=== PATIENT | male | born 1970 | race Hispanic/Latino ===

== ENCOUNTER 2025-01-29 12:41 | Outpatient (CLI) | payer SELFPAY ==
[2025-01-29 14:02] LABS: #Basophils 0.04 10x3/uL (0.0-0.2); #Eosinophils 0.12 10x3/uL (0.0-0.7); #Monocytes 0.62 10x3/uL (0.11-0.59); #Neutrophils 5.68 10x3/uL (1.40-6.50); %Basophils 0.5 % (0.0-1.0); %Eosinophils 1.4 % (0.0-10.0); %Lymphocytes 26.2 % (21.0-51.0); %Monocytes 7.1 % (0.0-10.0); %Neutrophils 64.5 % (42.0-75.0); Hematocrit 45.7 % (42.0-52.0); Hemoglobin 15.1 g/dL (14.0-18.0); Mean Corpuscular Hemoglobin 30.0 pg (27.0-31.0); Mean Corpuscular Volume 90.9 fL (78.0-98.0); Platelet Count 244 10x3/uL (130-400); Red Blood Cell (RBC) Count 5.03 mill/uL (4.70-6.10); White Blood Cell (WBC) Count 8.79 10x3/uL (4.8-10.8)
[2025-01-29 14:17] LABS: Anion Gap 13 mmol/L (10-20); BUN (Urea Nitrogen) 17 mg/dL (8.4-25.7); Calc. Creatinine Clearance 0 mL/min (70-130); Calcium 9.2 mg/dL (7.8-10.44); Carbon Dioxide 22 mmol/L (22-29); Chloride 110 mmol/L (98-107); Glucose 97 mg/dL (70-105); Potassium 4.0 mmol/L (3.5-5.1); Sodium 141 mmol/L (136-145)
== END 2025-01-29 12:42 | disposition home or self-care (01) ==
LOC: LABBT 12:41
PROVIDERS: ATTEND Orthopaedic Surgery
DX: Z01.818 Encounter for other preprocedural examination (principal); S68.615A Complete traumatic transphalangeal amputation of left ring finger, initial encounter
CPT/HCPCS: 80048; 85025; 93005; 93010

== ENCOUNTER 2025-01-30 08:27 | Day surgery (SDC) | payer OTHER, SELFPAY ==
[2025-01-29 12:54] VITALS: BMI 30.4
[2025-01-30] MEDS ORDERED: CEFAZOLIN 2 GM VIAL ONE (11:06)
[2025-01-30] MEDS ORDERED: PROPOFOL 20 ML ONE (11:43)
[2025-01-30] MEDS ORDERED: Lidocaine 1% PF 5 ML VIAL ONE (11:58)
[2025-01-30] MEDS ORDERED: Ondansetron PF 4 MG/2 ML Vial ONE (12:10)
[2025-01-30] MEDS ORDERED: Bacitracin Zinc Ointment 30 gm TUBE ONE (12:36)
[2025-01-30] MEDS ORDERED: hydrALAZINE 20 MG/ML VIAL ONE (12:38)
== END 2025-01-30 14:16 | disposition home or self-care (01) ==
LOC: SDC 08:27
PROVIDERS: ATTEND Orthopaedic Surgery
PROC: 0X6T0Z0 Detachment at Left Ring Finger, Complete, Open Approach (ICD-10-PCS; principal; 2025-01-30)
DX: S68.615A Complete traumatic transphalangeal amputation of left ring finger, initial encounter (principal); X58.XXXA Exposure to other specified factors, initial encounter; Y93.89 Activity, other specified
CPT/HCPCS: A6223; J0360; J0665; J1100; J2704